=== PATIENT | male | born 1965 | race Two or more races ===

== ENCOUNTER 2024-09-05 07:20 | Day surgery (SDC) | payer MEDICARE, MEDICAID, SELFPAY ==
[2024-09-04 13:06] VITALS: BMI 32.5
[2024-09-05] VITALS (12 sets, daily range): BP systolic 121–141; BP diastolic 72–99; PULSE 66–83; RESP 13–21; TEMP 36.2–36.6; O2SAT 94–98; BMI 31.7
[2024-09-05] MEDS: RINGERS LACTATED 1000 ML 1,000 ML 125 ML IV (09:40)
[2024-09-05] MEDS: fentaNYL CIT INJ 50 mCg/ML AMP 2ML (ASD USE ONLY) 25 MCG IVP (09:51)
[2024-09-05] MEDS: MIDAZOLAM INJ 1 MG/ML VIAL 2 ML (ASD USE ONLY) 2 MG IVP (09:52)
--- NOTE | 2024-09-05 10:37 | SUR.PHASEII ---
1011: Pt received for recovery. Report from Stacey STARR. Pt sleepy. Easily aroused with eye opening then drifts back to sleep. Resp even, unlabored. VS stable. No c/o pain, discomfort.
--- NOTE | 2024-09-05 11:26 | SUR.PHASEII ---
1040: Pt more awake, alert. VS stable. Denies pain. Is sitting up tolerating po fluids with no difficulty swallowing and no n/v. 1057: Pt fully awake, oriented x3. VS stable. Denies pain. Pt assisted to restroom. Ambulation steady. Pt and stated understanding of discharge instructions. Pt discharged from [facility] in stable condition.
== END 2024-09-05 11:15 | disposition home or self-care (01) ==
PROVIDERS: PCP Physician Assistant; Referring Provider Internal Medicine Gastroenterology; Visit Provider Internal Medicine Gastroenterology
PROC: 0DBE8ZX Excision of Large Intestine, Via Natural or Artificial Opening Endoscopic, Diagnostic (ICD-10-PCS; CPT 45380; principal; 2024-09-05 09:00)
DX: D12.4 Benign neoplasm of descending colon (principal); K64.1 Second degree hemorrhoids; K57.31 Diverticulosis of large intestine without perforation or abscess with bleeding; K63.5 Polyp of colon
CPT/HCPCS: 45380; 45385; J2250; J3010; J7120

== ENCOUNTER → 2024-09-10 | Outpatient (CLI) | payer MEDICARE, MEDICAID, SELFPAY ==
--- NOTE | 2024-09-10 15:00 | XR_ITS ---
Examination: CT abdomen with intravenous contrast CT pelvis with intravenous contrast 2-D coronal reconstructions 2-D sagittal reconstructions Date and time of exam:September 10, 2024 1504 hours Comparison April 27, 2022 INDICATIONS: Right upper abdominal pain left upper abdominal pain beginning 2 months ago. CTDI: vol (mGy) 10.1 DLP: (mGycm) 665 Technique: Multiple axial sections of the abdomen and pelvis have been obtained. 64 slice high-resolution scanner used. 3 mm axial sections have been obtained, post intravenous injection 60 cc [id number] 2-D sagittal, coronal reconstructions obtained. Low dose protocols were performed. One or more of the following dose reduction techniques were used; automated exposure control, adjustment of the mA and/or KV according to patient size, use of iterative reconstruction technique. Findings: No focal liver or splenic lesions No gallstones No pancreatic or adrenal mass Again noted left renal septated cyst with calcified margins, this cyst stable in size, 9 cm compared to April 27, 2022 No hydronephrosis Aorta normal size No bowel obstruction Normal appendix No diverticulitis Mild prostatomegaly Urinary bladder intact Moderate stool in the rectum Tiny fat-containing umbilical hernia Transpedicular lumbar stabilization L4-L5 IMPRESSION: Stable septated cyst with calcified margins, left kidney, 9 cm in transverse dimension
== END | disposition home or self-care (01) ==
PROVIDERS: PCP Physician Assistant; Referring Provider Internal Medicine Gastroenterology; Visit Provider Internal Medicine Gastroenterology
DX: N28.1 Cyst of kidney, acquired (principal)
CPT/HCPCS: 74177; A4649; Q9967

== ENCOUNTER 2024-09-17 06:50 | Day surgery (SDC) | payer MEDICARE, MEDICAID, SELFPAY ==
[2024-09-16 10:22] VITALS: BMI 33.3
[2024-09-17] VITALS (8 sets, daily range): BP systolic 117–141; BP diastolic 77–103; PULSE 60–73; RESP 15–20; TEMP 36.3–36.6; O2SAT 97–100; BMI 31.7
[2024-09-17] MEDS: BENZOCAINE 20% (Hurricaine) SPRAY 1 DOSE TOP (08:58)
[2024-09-17] MEDS: RINGERS LACTATED 1000 ML 1,000 ML 125 ML IV (08:58)
[2024-09-17] MEDS: MIDAZOLAM INJ 1 MG/ML VIAL 2 ML (ASD USE ONLY) 2 MG IVP (09:02)
[2024-09-17] MEDS: fentaNYL CIT INJ 50 mCg/ML AMP 2ML (ASD USE ONLY) IVP (09:02)
== END 2024-09-17 09:40 | disposition home or self-care (01) ==
PROVIDERS: PCP Physician Assistant; Referring Provider Internal Medicine Gastroenterology; Visit Provider Internal Medicine Gastroenterology
PROC: (CPT 43239; principal; 2024-09-17 07:30)
DX: K21.00 Gastro-esophageal reflux disease with esophagitis, without bleeding (principal); K22.2 Esophageal obstruction; E66.9 Obesity, unspecified; K29.70 Gastritis, unspecified, without bleeding; K31.89 Other diseases of stomach and duodenum; K26.9 Duodenal ulcer, unspecified as acute or chronic, without hemorrhage or perforation
CPT/HCPCS: 43239; J1200; J2250; J3010; J7120; A9270

== ENCOUNTER 2024-11-14 09:50 | Day surgery (SDC) | payer MEDICARE, MEDICAID, SELFPAY ==
[2024-11-13 13:37] VITALS: BMI 31.8
[2024-11-14] VITALS (7 sets, daily range): BP systolic 120–149; BP diastolic 81–99; PULSE 71–78; RESP 13–19; TEMP 36.7; O2SAT 95–99; BMI 31.7
[2024-11-14] MEDS: BENZOCAINE 20% (Hurricaine) SPRAY 1 DOSE TOP (11:12)
[2024-11-14] MEDS: RINGERS LACTATED 1000 ML 1,000 ML 125 ML IV (11:12)
[2024-11-14] MEDS: MIDAZOLAM INJ 1 MG/ML VIAL 2 ML (ASD USE ONLY) 2 MG IVP (11:15)
[2024-11-14] MEDS: fentaNYL CIT INJ 50 mCg/ML AMP 2ML (ASD USE ONLY) IVP (11:15)
== END 2024-11-14 11:57 | disposition home or self-care (01) ==
PROVIDERS: PCP Physician Assistant; Referring Provider Internal Medicine Gastroenterology; Visit Provider Internal Medicine Gastroenterology
PROC: (CPT 43239; principal; 2024-11-14 11:15)
DX: K44.9 Diaphragmatic hernia without obstruction or gangrene (principal); R10.13 Epigastric pain; I10 Essential (primary) hypertension; E78.5 Hyperlipidemia, unspecified; E88.810 Metabolic syndrome; K76.0 Fatty (change of) liver, not elsewhere classified; K70.2 Alcoholic fibrosis and sclerosis of liver; K25.0 Acute gastric ulcer with hemorrhage
CPT/HCPCS: 43235; A4649; J1200; J2250; J3010; J7120; A9270

== ENCOUNTER 2025-01-07 08:30 | Day surgery (SDC) | payer MEDICARE, MEDICAID, SELFPAY ==
[2025-01-07] VITALS (8 sets, daily range): BP systolic 129–161; BP diastolic 83–106; PULSE 72–94; RESP 18–24; TEMP 36.6–36.8; O2SAT 90–96; BMI 31.6
[2025-01-07] MEDS: BENZOCAINE 20% (Hurricaine) SPRAY 1 DOSE TOP (10:54)
[2025-01-07] MEDS: RINGERS LACTATED 500 ML 500 ML 20 ML IV (11:00)
[2025-01-07] MEDS: MIDAZOLAM INJ 1 MG/ML VIAL 2 ML (ASD USE ONLY) 2 MG IVP (11:00)
[2025-01-07] MEDS: fentaNYL CIT INJ 50 mCg/ML AMP 2ML (ASD USE ONLY) IVP (11:01)
--- NOTE | 2025-01-07 12:23 | SUR.PHASEII ---
1135 Pt more awake and alert. Denies pain, N/V or difficulty swallowing. Mirtha PO fluids. 1150 Pt assessment unchanged. No complaints. Amb with steady gait. Able to dress self. Pt and given dc instructions. Both state understanding. Pt meets dc criteria-to home.
== END 2025-01-07 11:50 | disposition home or self-care (01) ==
PROVIDERS: PCP Physician Assistant; Referring Provider Internal Medicine Gastroenterology; Visit Provider Internal Medicine Gastroenterology
PROC: (CPT 43239; principal; 2025-01-07 13:15)
DX: K29.70 Gastritis, unspecified, without bleeding (principal); K22.2 Esophageal obstruction; K44.9 Diaphragmatic hernia without obstruction or gangrene; K31.89 Other diseases of stomach and duodenum; K76.0 Fatty (change of) liver, not elsewhere classified
CPT/HCPCS: 43239; A4649; J1200; J2250; J3010; J7120; A9270